=== PATIENT | male | born 1980 | race African-American/Black ===

== ENCOUNTER 2022-02-12 20:34 | Emergency (ER) | payer OTHER ==
[~2022-02-12] VITALS: Ht 162.6 cm; Wt 66.2 kg
[2022-02-12 20:34] VITALS: BP 138/83; TEMP 98.5
== END 2022-02-13 02:00 | disposition home or self-care (01) ==
LOC: ED 20:34
DX: S50.811A Abrasion of right forearm, initial encounter (principal); S80.812A Abrasion, left lower leg, initial encounter; W54.0XXA Bitten by dog, initial encounter; Y93.01 Activity, walking, marching and hiking; Y92.410 Unspecified street and highway as the place of occurrence of the external cause
CPT/HCPCS: 90471; 90715; 99282